=== PATIENT | female | born 1980 | race Caucasian/White ===

== ENCOUNTER 2021-06-09 12:55 | Emergency (ER) | payer OTHER ==
[2021-06-09 13:40] VITALS: BP 121/73
--- NOTE | 2021-06-09 13:54 | Emergency Department Report ---
ED General Adult HPI - General Chief complaint: Allergic Reaction Stated complaint: ABD PAIN,12WKS PREG Time Seen by Provider: 06/09/21 13:43 Source: patient Mode of arrival: Ambulatory Limitations: No Limitations - History of Present Illness Initial comments: 40-year-old -[place] female who reports she has 12 weeks presents to the emergency room for suprapubic pelvic pain and dysuria. She also complains of itchy swollen eyes. She states that she has a past 3 months and has had an ultrasound and is followed by my OB. She is 4 para 1 with 2 miscarriages. Last OB visit May 21, 2021. She reports ports that she has lower back pain and is worse when bending. She denies any vaginal discharge vaginal bleeding. Onset/Timin -: days(s) Severity scale (0 -10): 5 Consistency: intermittent Improves with: none Worsens with: none Associated Symptoms: denies other symptoms. denies: diaphoresis, fever/chills Treatments Prior to Arrival: none - Related Data Allergies Allergy/AdvReac Type Severity Reaction Status Date / Time aspirin Allergy Unknown Verified 06/09/21 13:32 ibuprofen [From Motrin] Allergy Swelling Verified 06/09/21 13:32 NSAIDS (Non-Steroidal Allergy Swelling Verified 06/09/21 13:32 Anti-Inflamma ED Review of Systems ROS: Stated complaint: ABD PAIN,12WKS PREG Other details as noted in HPI Comment: All other systems reviewed and negative ED Past Medical Hx - Past Medical History Previous Medical History?: Yes - Surgical History Past Surgical History?: Yes Additional Surgical History: Breast Augmentation ED Physical Exam - General Limitations: No Limitations ED Course Vital Signs 06/09/21 13:39 Temperature 98.8 F Pulse Rate 76 Respiratory 20 Rate Blood Pressure 121/73 [Right] O2 Sat by Pulse 99 Oximetry ED Medical Decision Making - Lab Data Lab Results 06/09/21 06/09/21 Range/Units 14:25 14:25 Urine Color Yellow (Yellow) Urine Turbidity Slightly-cloudy (Clear) Urine pH 6.0 (5.0-7.0) Ur Specific Ovid 1.023 (1.003-1.030) Urine Protein <15 mg/dl (Negative) mg/dL Urine Glucose (UA) Neg (Negative) mg/dL Urine Ketones Neg (Negative) mg/dL Urine Blood Neg (Negative) Urine Nitrite Neg (Negative) Urine Bilirubin Neg (Negative) Urine Urobilinogen < 2.0 (<2.0) mg/dL Ur Leukocyte Esterase Neg (Negative) Urine WBC (Auto) 1.0 (0.0-6.0) /HPF Urine RBC (Auto) 1.0 (0.0-6.0) /HPF U Epithel Cells (Auto) 1.0 (0-13.0) /HPF Urine Mucus Few /HPF Urine HCG, Qual Positive A (Negative) - Medical Decision Making 40-year-old -[place] female who reports she has 12 weeks presents to the emergency room for suprapubic pelvic pain and dysuria. She also complains of itchy swollen eyes. She states that she has a past 3 months and has had an ultrasound and is followed by my OB. She is 4 para 1 with 2 miscarriages. Last OB visit May 21, 2021. She reports ports that she has lower back pain and is worse when bending. Urinalysis ordered and is found to be negative for any concerns. Critical care attestation.: If time is entered above; I have spent that time in minutes in the direct care of this critically ill patient, excluding procedure time. ED Disposition Condition: Stable
--- NOTE | 2021-06-09 13:58 | Emergency Department Report ---
HPI - General Chief Complaint: Allergic Reaction Time Seen by Provider: 06/09/21 13:43 ED Past Medical Hx - Past Medical History Previous Medical History?: Yes - Surgical History Past Surgical History?: Yes Additional Surgical History: Breast Augmentation ED Review of Systems ROS: Stated complaint: ABD PAIN,12WKS PREG Other details as noted in HPI Physical Exam - Physical Exam Vital Signs: Vital Signs 06/09/21 13:39 Temperature 98.8 F Pulse Rate 76 Respiratory 20 Rate Blood Pressure 121/73 [Right] O2 Sat by Pulse 99 Oximetry ED Course Vital Signs 06/09/21 13:39 Temperature 98.8 F Pulse Rate 76 Respiratory 20 Rate Blood Pressure 121/73 [Right] O2 Sat by Pulse 99 Oximetry Critical care attestation.: If time is entered above; I have spent that time in minutes in the direct care of this critically ill patient, excluding procedure time. ED Disposition Condition: Stable
[2021-06-09 14:41] LABS: HCG Qualitative,Urine Positive (Negative)
[2021-06-09 15:23] LABS: Bilirubin,Urine NEG (Negative); Blood,Urine NEG (Negative); Color,Urine Yellow (Yellow); Mucus,Urine FEW /HPF; Protein,Urine <15 mg/dL mg/dL (Negative); Urobilinogen,Urine < 2.0 mg/dL (<2.0)
--- NOTE | 2021-06-09 17:08 | Ultrasound Report ---
ULTRASOUND OBSTETRIC INDICATION / CLINICAL INFORMATION: Pelvic pain 12 weeks. Clinical Gestational Age (GA) in weeks, days: 14 weeks 0 days TECHNIQUE: Transabdominal. COMPARISON: None. FINDINGS: Single intrauterine . Biparietal Diameter = 2.4 cm = 14, 0 weeks, days Head Circumference = 8.8 cm = 13, 6 weeks, days Abdominal Circumference = 7.5 cm = 14, 0 weeks, days Femur Length = 1.4 cm = 14, 1 weeks, days Average Ultrasound Age (AUA) = 14, 0 weeks, days Heart Rate: 156 beats per minute. Estimated Weight in grams (if calculated): Not calculated Estimated Weight Growth Percentile (if calculated): Not calculated Position: Variable Cervix: closed. Length in cm (if measured): Not measured Placenta: anterior and free of the os. Placental grade 0. Amniotic Fluid Volume: normal Amniotic Fluid Index (SHREE) in cm (if calculated): Not calculated. Maternal Adnexa: No significant abnormality. IMPRESSION: 1. Single, living intrauterine with estimated sonographic age of 14 weeks 0 days. 2. No significant sonographic abnormality. Signer Name: Jong De Guzman MD Signed: 06/09/2021 5:03 PM Workstation Name: [id number]
== END 2021-06-10 18:56 | disposition left against medical advice (07) ==
LOC: ED 12:55
DX: O26.891 Other specified pregnancy related conditions, first trimester (principal); R10.30 Lower abdominal pain, unspecified; R30.0 Dysuria; M54.50 Low back pain, unspecified; Z3A.12 12 weeks gestation of pregnancy; Z98.890 Other specified postprocedural states; Z88.6 Allergy status to analgesic agent; Z88.8 Allergy status to other drugs, medicaments and biological substances; Z79.899 Other long term (current) drug therapy
CPT/HCPCS: 76801; 81001; 81025; 99283

== ENCOUNTER 2021-09-29 12:17 | Outpatient (CLI) | payer OTHER ==
[2021-09-29 12:49] VITALS: BP 122/76
[2021-09-29] MEDS ORDERED: LACTATED RINGERS 500 ML IV ONE (13:07)
[2021-09-29 13:45] LABS: Bilirubin,Urine NEG (Negative); Blood,Urine NEG (Negative); Color,Urine Straw (Yellow); Protein,Urine <15 mg/dL mg/dL (Negative); RBC,Urine < 1.0 /HPF (0.0-6.0); Urobilinogen,Urine < 2.0 mg/dL (<2.0); WBC,Urine < 1.0 /HPF (0.0-6.0)
[2021-09-29] MEDS ORDERED: TERBUTALINE 1 MG/1 ML INJ SUB-Q SCH (15:00)
[2021-09-29] MEDS ORDERED: BETAMET ACET/BETAMET NA PH 6 MG/ML INJ 5 ML MDV IM ONE (15:00)
--- NOTE | 2021-09-29 15:16 | Event Note ---
Date: 09/29/21 (4974) Pt presented to [facility] for Contractions. Was given fluid bolus, 1dose of turbutaline given. Cervical length u/s ordered. Continuous and contraction monitoring.
--- NOTE | 2021-09-29 15:40 | Ultrasound Report ---
Limited OB Ultrasound HISTORY: LABOR - FOR CERVICAL LENGTH. TECHNIQUE: Grayscale and color imaging performed. COMPARISON: OB ultrasound from 06/09/2021 IMPRESSION: Cervical length is 4 cm. The internal cervical os appears to be closed. There is a naboth candie cyst. Signer Name: Kareem Storey MD Signed: 09/29/2021 3:35 PM Workstation Name: [id number]
== END 2021-09-29 16:30 | disposition home or self-care (01) ==
LOC: TRG 12:17 → APU 12:17 → TRG 16:30
PROVIDERS: ATTEND Obstetrics & Gynecology
DX: O26.893 Other specified pregnancy related conditions, third trimester (principal); R10.30 Lower abdominal pain, unspecified; Z3A.30 30 weeks gestation of pregnancy
CPT/HCPCS: 59025; 76815; 81001; 96372; J0702; J7120; 96360

== ENCOUNTER 2021-09-30 15:08 | Outpatient (CLI) | payer OTHER ==
[2021-09-30] MEDS ORDERED: BETAMET ACET/BETAMET NA PH 6 MG/ML INJ 5 ML MDV IM ONE ×2 (15:15→15:17)
== END 2021-09-30 15:31 | disposition home or self-care (01) ==
LOC: TRG 15:08 → APU 15:09 → TRG 15:31
PROVIDERS: ATTEND Obstetrics & Gynecology
DX: O09.523 Supervision of elderly multigravida, third trimester (principal); Z3A.30 30 weeks gestation of pregnancy
CPT/HCPCS: 96372; J0702

== ENCOUNTER 2021-11-29 23:54 | Outpatient (CLI) | payer OTHER ==
[2021-11-30 00:31] VITALS: BP 130/76
[2021-11-30 01:05] LABS: Color,Urine Colorless (Yellow)
[2021-11-30 01:06] LABS: Bilirubin,Urine Negative (Negative)
[2021-11-30 01:07] LABS: Blood,Urine Negative (Negative); Urobilinogen,Urine 0.2 mg/dL (<2.0)
[2021-11-30 01:13] LABS: Mucus,Urine FEW /HPF
== END 2021-11-30 03:50 | disposition home or self-care (01) ==
LOC: TRG 23:54 → APU 23:57 → TRG 11-30 03:50
PROVIDERS: ATTEND Obstetrics & Gynecology
DX: O09.893 Supervision of other high risk pregnancies, third trimester (principal); Z3A.38 38 weeks gestation of pregnancy
CPT/HCPCS: 81001

== ENCOUNTER 2021-12-03 20:31 | Inpatient (IN) | payer OTHER ==
--- NOTE | 2021-12-03 21:57 | History and Physical Report ---
History of Present Illness Date of examination: 12/03/21 Date of admission: 12/03/2021 Chief complaint: IOL History of present illness: 41 y/o at 39-2/7 weeks presents to L&D for IOL secondary to obesity and AMA. IOL was recommended by MFM for these indications. No VB or LOF. Irregular contractions. Good FM. In L&D, cervix as 1-2 cm dilated. The patient is admitted to L&D for cervical ripening and IOL. Past History Past Medical History: other (Obesity) Past Surgical History: breast surgery, other (breast augmentation, liposuction) Family/Genetic History: none Social history: no significant social history - Obstetrical History Expected Date of Delivery: 12/08/21 Actual Gestation: 39 Week(s) 2 Day(s) : 4 Para: 1 Hx # Term Pregnancies: 1 Number of Pregnancies: 0 Spontaneous Abortions: 2 Induced : 0 Number of Living Children: 1 Medications and Allergies Allergies Allergy/AdvReac Type Severity Reaction Status Date / Time aspirin Allergy Unknown Verified 11/30/21 00:19 ibuprofen [From Motrin] Allergy Swelling Verified 11/30/21 00:19 NSAIDS (Non-Steroidal Allergy Swelling Verified 11/30/21 00:18 Anti-Inflamma Review of Systems All systems: negative - Vital Signs Vital signs: Vital Signs Pulse Ox 89 12/03/21 21:13 Temp Pulse Resp BP Pulse Ox 98.1 F 89 18 130/85 96 12/03/21 21:34 12/03/21 21:53 12/03/21 21:34 12/03/21 21:34 12/03/21 21:53 - Physical Exam Breasts: Positive: normal Cardiovascular: Regular rate Lungs: Positive: Normal air movement Abdomen: Positive: normal appearance Genitourinary (Female): Positive: normal external genitalia, normal perenium Vulva: both: normal Vagina: Positive: normal moisture Uterus: Positive: enlarged Adnexa: both: normal Anus/Rectum: Positive: normal perianal skin Extremities: Positive: normal Deep Tendon Reflex Grade: Normal +2 - Obstetrical FHR: category 1 Uterine Contraction Monitor Mode: External Cervical Dilatation: 1.5 Cervical Effacement Percentage: 40 station: -3 Uterine Contraction Pattern: Irregular Uterine Contraction Intensity: Mild Results Result Diagrams: 12/03/21 22:30 All other labs normal. Ultrasound: pending Assessment and Plan - Patient Problems (1) 39 weeks gestation of Current Visit: Yes Status: Acute Plan to address problem: care is up-to-date. The patient is GBS (-). (2) Obesity affecting in third trimester Current Visit: Yes Status: Acute Plan to address problem: IOL recommended per MFM. (3) AMA (advanced maternal age) multigravida 35+ Current Visit: Yes Status: Acute Plan to address problem: IOL recommended per MFM. (4) Encounter for induction of labor Current Visit: Yes Status: Acute Plan to address problem: Ripen cervix with Cytotec.
[2021-12-03] MEDS ORDERED: ePHEDrine SULFATE 50 MG/1 ML INJ IV PRN (21:58)
[2021-12-03] MEDS ORDERED: ACETAMINOPHEN 325 MG TAB PO PRN (21:58)
[2021-12-03] MEDS ORDERED: TERBUTALINE 1 MG/1 ML INJ SUB-Q PRN (21:58)
[2021-12-03] MEDS ORDERED: CARBOPROST TROMETHAMINE 250 MCG/1 ML INJ IM PRN (21:58)
[2021-12-03] MEDS ORDERED: METHYLERGONOVINE MALEATE 0.2 MG/ML VIAL IM PRN (21:58)
[2021-12-03] MEDS ORDERED: fentaNYL 100 MCG/2 ML INJ IV PRN (21:58)
[2021-12-03] MEDS ORDERED: LACTATED RINGERS 1,000 ML IV SCH (22:00)
[2021-12-03] MEDS ORDERED: OXYTOCIN DRIP 30 UNITS/500 ML BAG IV SCH (22:00)
[2021-12-03] MEDS: miSOPROStol 25 MCG TAB PO SCH (22:27)
[2021-12-03 22:48] LABS: Hematocrit 36.7 % (30.3-42.9); Hemoglobin 12.4 gm/dl (10.1-14.3); Mean Corpuscular HGB Conc 34 % (30-34); Mean Corpuscular Volume 95 fl (79-97); Platelet Count 240 K/mm3 (140-440); Red Blood Count 3.85 M/mm3 (3.65-5.03); Red Cell Distribution Width 14.6 % (13.2-15.2)
--- NOTE | 2021-12-04 01:45 | Ultrasound Report ---
ULTRASOUND OBSTETRIC COMPLETE INDICATION / CLINICAL INFORMATION: well-being. Clinical Gestational Age (GA) in weeks, days: 39 weeks 3 days TECHNIQUE: Transabdominal. COMPARISON: None available. FINDINGS: NUMBER: Single PRESENTATION: cephalic PLACENTA: anterior and free of the os. MATERNAL ADNEXA: No significant abnormality. AMNIOTIC FLUID VOLUME: normal AMNIOTIC FLUID INDEX (SHREE) in cm (if measured): 8.7 MEASUREMENTS: - Biparietal Diameter = 9.5 cm = 38 weeks 4 days - Head Circumference = 33.1 cm = 37 weeks 5 days - Abdominal Circumference = 29.7 cm = 33 weeks 5 days - Femur Length = 7.2 cm = 36 weeks 4 days - Estimated Weight (in grams, if calculated): 2674 - Heart Rate (beats per minute): 156 ADDITIONAL FINDINGS: None. AVERAGE ULTRASOUND AGE (AUA) in weeks, days = 36 weeks 5 days IMPRESSION: 1. Single intrauterine with AUA of 36 weeks 5 days. Estimated weight of 2674 g. 2. No significant sonographic abnormality. 3. Anterior placenta is free of the os. 4. SHREE is within normal limits, measuring 8.7 cm. Signer Name: Ras Morse MD Signed: 12/04/2021 1:41 AM Workstation Name: [id number]
[2021-12-04] MEDS: miSOPROStol 25 MCG TAB PO SCH ×2 (02:19→07:13)
--- NOTE | 2021-12-04 08:35 | Event Note ---
Date: 12/04/21 SVE= 3/50%/-3. Continue Cytotec for cervical ripening.
[2021-12-04] MEDS ORDERED: miSOPROStol 25 MCG TAB PO SCH (13:00)
--- NOTE | 2021-12-04 16:12 | Event Note ---
Date: 12/04/21 pt seen earlier and covid test positive and pt notified. Will complete cytotec and then 4hrs later, continue augmentation of pitocin. Expect . FHR category I
[2021-12-04] MEDS ORDERED: HYDROmorphone 1 MG/1 ML INJ IV PRN (19:33)
--- NOTE | 2021-12-05 06:41 | Event Note ---
Date: 12/05/21 Patient did not receive Pitocin overnight. EFM= category 1 TOCO= irregular SVE= 3/50%/-3/medium consistency/mid-position. Pantoja score is 5. Cook's catheter inserted transcervically. 80 mL normal saline injected in the cervical balloon. Vaginal balloon was left empty. The catheter was placed to gentle traction with a 1 L bag of lactated Ringer's. Patient was comfortable. Cytotec 50 mcg p.o. every 4 hours ordered as well. When Cook's catheter falls out, I recommend artificial rupture membranes and starting Pitocin per protocol.
[2021-12-05] MEDS ORDERED: miSOPROStol 25 MCG TAB PO SCH (07:00)
[2021-12-05] MEDS: BUTORPHANOL 2 MG/1 ML INJ IV PRN ×2 (08:01→10:30)
[2021-12-05] MEDS ORDERED: LIDOCAINE (2%) 20 MG/1 ML VIAL 20 ML MDV INFILTRATI ONE (11:22)
[2021-12-05] MEDS ORDERED: MINERAL OIL 30 ML ORAL LIQD ONE (11:22)
[2021-12-05] MEDS ORDERED: ONDANSETRON 4 MG/2 ML INJ IV PRN (11:30)
[2021-12-05] MEDS ORDERED: ONDANSETRON 4 MG/2 ML INJ ONE (11:36)
[2021-12-05] MEDS ORDERED: HYDROcodone/ACETAMINOPHEN 5-325 MG TAB PO PRN (12:29)
[2021-12-05] MEDS ORDERED: WITCH HAZEL/ GLYCERIN PAD TP PRN (12:29)
[2021-12-05] MEDS ORDERED: diphenhydrAMINE 25 MG CAP PO PRN (12:29)
[2021-12-05] MEDS ORDERED: LANOLIN/ZINC/DIMETHICONE (LANSINOH) 7 GM TP PRN (12:29)
[2021-12-05] MEDS ORDERED: PROMETHAZINE 25 MG TAB PO PRN (12:29)
[2021-12-05] MEDS ORDERED: PROMETHAZINE 25 MG RECT SUPP PR PRN (12:29)
--- NOTE | 2021-12-05 12:38 | Procedure Note ---
OB Delivery Note - Delivery Date of Delivery: 12/05/21 (1204) Surgeon: SARAH VASQUEZ Estimated blood loss: 200cc - Vaginal Delivery presentation: vertex Delivery position: OA Intrapartum events: none Delivery induction: misoprostol Delivery augmentation: pitocin Delivery monitor: external FHT, external uterine Route of delivery: Delivery placenta: spontaneous Delivery cord: 3 umbilical vessels Episiotomy: none Delivery laceration: 1st degree Delivery repair: vicryl Anesthesia: local Delivery comments: of a live 6'6 male infant over a 1st degree perineal laceration under IV Pain Control with Apgars of 8 and 9 at 1204 on 12/05/2021. directly to maternal abd/chest, skin to skin contact. Perineal laceration repaired with 2-0 Vicryl on a SH under local 2% Lidocaine. Spontaneous delivery of placenta complete and intact with Hoover side presenting at 1208. Fundus is firm and midline located 4 below the U. Lochia is scant. Delayed cord clamping and cutting; Cord cut by the Father of the Baby. - Infant A at 1 minute: 8 at 5 minutes: 9 Infant Gender: Male (6'6)
[2021-12-05] MEDS ORDERED: IBUPROFEN 800 MG TAB PO SCH (13:00)
[2021-12-05] MEDS ORDERED: ACETAMINOPHEN W/CODEINE 300-30 MG TAB PO PRN (16:31)
[2021-12-05] MEDS ORDERED: BENZOCAINE/MENTHOL 20/0.5% TOP SPRAY 56 GM TP PRN (18:19)
[2021-12-05 18:21] LABS: Hepatitis C Virus Antibody Non-Reactive (NonReactive)
[2021-12-05] MEDS: ACETAMINOPHEN 325 MG TAB PO PRN (23:04)
[2021-12-06] MEDS: ACETAMINOPHEN 325 MG TAB PO PRN (05:14)
[2021-12-06 07:41] LABS: Hematocrit 36.3 % (30.3-42.9)
[2021-12-06] MEDS ORDERED: PRENATAL VIT27-FE FUMARATE-FOLIC ACID VIT TAB PO SCH (10:00)
--- NOTE | 2021-12-06 13:47 | Progress Note ---
Assessment and Plan PPD#1 doing well; asymptomatic covid positive 1. Pt reassured it's the small laceration and repair causing the slight burning after voiding. Pt to use dermoplast and see if same improve 2. Routine care. Subjective Date of service: 12/06/21 Principal diagnosis: PPD#1 Interval history: Pt bottle feeding in bed. pt also states that she has a slight discomfort with burning after she completes voiding. Denies coughing, fever or chills. Objective - Constitutional Vitals: Vital Signs - 12hr 12/06/21 12/06/21 12/06/21 02:29 05:14 08:30 Temperature 97.9 F 97.6 F Pulse Rate 72 74 Respiratory 18 16 18 Rate Blood Pressure 113/69 107/71 O2 Sat by Pulse 96 96 Oximetry O2 Sat by Pulse Oximetry [ Anterior Bilateral Throughout] 12/06/21 12/06/21 10:00 11:22 Temperature Pulse Rate Respiratory 16 Rate Blood Pressure O2 Sat by Pulse Oximetry O2 Sat by Pulse 99 Oximetry [ Anterior Bilateral Throughout] General appearance: Present: no acute distress - Neck Neck: normal ROM - Respiratory Respiratory effort: normal - Breasts Breasts: deferred - Cardiovascular Rhythm: regular Extremities: No edema - Gastrointestinal General gastrointestinal: Present: soft, non-tender - Genitourinary Female genitourinary: other (fundus non-tender 1cm below umbilicus. Lochia small) - Integumentary Integumentary: warm, dry - Neurologic Neurologic: moves all extremities - Psychiatric Psychiatric: cooperative - Labs CBC & Chem 7: 12/06/21 07:15 Medications & Allergies - Medications Allergies/Adverse Reactions: Allergies aspirin Allergy (Verified 11/30/21 00:19) Unknown ibuprofen [From Motrin] Allergy (Verified 11/30/21 00:19) Swelling NSAIDS (Non-Steroidal Anti-Inflamma Allergy (Verified 11/30/21 00:18) Swelling Active Medications: Generic Name Dose Route Start Last Admin Trade Name Freq PRN Reason Stop Dose Admin Acetaminophen 650 mg 12/05/21 16:32 12/06/21 05:14 Acetaminophen 325 Mg Tab PO 650 mg Q6H PRN Administration Pain, Mild (1-3) Acetaminophen/Codeine Phosphate 1 tab 12/05/21 16:31 12/06/21 11:22 Acetaminophen W/Codeine 300-30 Mg Tab PO 1 tab Q6H PRN Administration Pain, Moderate (4-6) Benzocaine/Menthol 1 spray 12/05/21 18:19 12/05/21 18:27 Benzocaine/Menthol 20/0.5% Top Welcome 56 Gm TP 1 spray TID PRN Administration pain Bisacodyl 10 mg 12/05/21 12:29 Bisacodyl 10 Mg Rect Supp AR BID PRN Constipation Diphenhydramine HCl 25 mg 12/05/21 12:29 Diphenhydramine 25 Mg Cap PO Q6H PRN Itching Multi-Ingredient Ointment 1 applic 12/05/21 12:29 Lanolin/Zinc/Dimethicone (Lansinoh) 7 Gm TP PRN PRN Sore Nipples Multivitamins/Iron/Calcium 1 each 12/06/21 10:00 12/06/21 11:22 [id number] Fumarate-Folic Acid Vit Tab PO 1 each QDAY MAI Administration Promethazine HCl 25 mg 12/05/21 12:29 Promethazine 25 Mg Rect Supp AR Q6H PRN Nausea And Vomiting Promethazine HCl 25 mg 12/05/21 12:29 Promethazine 25 Mg Tab PO Q6H PRN Nausea And Vomiting Sodium Chloride 10 ml 12/05/21 13:00 Sodium Chloride 0.9% 10 Ml Flush Syringe IV PRN MAI Witch Tiny/Glycerin 1 each 12/05/21 12:29 Witch Tiny/ Glycerin Pad TP PRN PRN Hemorrhoid/cleansing/soothing
--- NOTE | 2021-12-06 14:10 | Discharge Summary ---
Providers - Providers Date of Admission: 12/03/21 21:58 Date of discharge: 12/06/21 Attending physician: CHARLOTTE RECINOS Primary care physician: CHARLOTTE RECINOS Hospitalization Reason for admission: IUP at term, other (covid positive on testing here at [facility]) Delivery: Episiotomy: none Laceration: 1st degree complications: none Discharge diagnosis: IUP at term delivered, other (covid positive) [place] baby: male Hospital course: Term pt admitted and tested positive for covid, pt remained asymptomatic; Had uncomplicated and uneventful. Baby discharged by peds and therefore pt also discharged. Condition at discharge: Good Disposition: 01 HOME / SELF CARE / HOMELESS - Discharge Diagnoses (1) COVID Status: Acute Plan - Provider Discharge Summary Additional instructions: [] Smoking cessation referral if applicable(refer to patient education folder for contact #) [] Refer to [facility] Booklet Call your doctor immediately for: * Fever > 100.5 * Heavy vaginal bleeding ( >1 pad per hour) * Severe persistent headache * Shortness of breath * Reddened, hot, painful area to leg or breast * Drainage or odor from incision. * Keep incision clean and dry at all times and follow doctor's instructions regarding bathing/showering - Follow up plan Follow up: CHARLOTTE RECINOS MD [Primary Care Provider] - 7 Days
[2021-12-06 18:08] VITALS: BP 111/76
== END 2021-12-06 18:00 | disposition home or self-care (01) | DRG 805 ==
LOC: TRG 20:31 → LD 20:51 → TRG 21:58 → OB 12-05 14:24
PROVIDERS: ADMIT Obstetrics & Gynecology; ATTEND Obstetrics & Gynecology
PROC: 10E0XZZ Delivery of Products of Conception, External Approach (ICD-10-PCS; principal; 2021-12-05)
PROC: 0HQ9XZZ Repair Perineum Skin, External Approach (ICD-10-PCS; 2021-12-05)
PROC: 0U7C7ZZ Dilation of Cervix, Via Natural or Artificial Opening (ICD-10-PCS; 2021-12-05)
PROC: 3E0P7VZ Introduction of Hormone into Female Reproductive, Via Natural or Artificial Opening (ICD-10-PCS; 2021-12-05)
DX: O98.52 Other viral diseases complicating childbirth (principal); U07.1 COVID-19; Z37.0 Single live birth; Z3A.39 39 weeks gestation of pregnancy; O99.214 Obesity complicating childbirth; O70.0 First degree perineal laceration during delivery; Z88.6 Allergy status to analgesic agent; Z88.8 Allergy status to other drugs, medicaments and biological substances
CPT/HCPCS: 36415; 76816; 85014; 85018; 85027; 86706; 86762; 86803; 86850; 86900; 86901; G0378; J3490; J0595; J2405; J2590; J7120; U0003